=== PATIENT | female | born 1995 | race Caucasian/White ===

== ENCOUNTER 2016-04-05 05:03 | Emergency (ER) | payer SELFPAY ==
[2016-04-05] MEDS ORDERED: TRIPLE ANTIBIOTIC OINTMENT PAC 1 PACKET TOP ONE (05:26)
--- NOTE | 2016-04-05 05:32 | ED Physician Documentation ---
General Adult - HISTORIAN Historian: patient - HPI Stated Complaint: Abrasion to Finger Chief Complaint: General Adult Additional Information: Cut finger on tea urn and thoought there was tea left in the cut. Tetanus in 2012, or 2013. - ROS CONST: no problems - PAST HX Past History: none Allergies/Adverse Reactions: Allergies Allergy/AdvReac Type Severity Reaction Status Date / Time propranolol HCl Allergy Intermediate Hallucinati Verified 04/05/16 05:13 [From Inderal] ons Home Medications: Ambulatory Orders Medication Instructions Recorded NK [NK] 04/05/16 - SOCIAL HX Smoking History: non-smoker - FAMILY HX Family History: No - VITAL SIGNS Vital Signs: Vital Signs Temp Pulse Resp BP Pulse Ox 97.1 F L 94 H 18 147/85 99 04/05/16 05:05 04/05/16 05:05 04/05/16 05:05 04/05/16 05:05 04/05/16 05:05 - REVIEWED ASSESSMENTS Nursing Assessment Reviewed: Yes Vitals Reviewed: Yes ED Results Lab/Radiology - Orders Orders: ED Orders Category Date Time Status Apply occlusive dressing D Care 04/05/16 05:28 Ordered Triple Antibiotic Ointment Pac [Neosporin Packet] Med 04/05/16 05:26 Once 1 packet TOP 1T ONE General Adult Physical Exam - PHYSICAL EXAM GENERAL APPEARANCE: mild distress (anxious) EENT: eye inspection normal, ENT inspection normal NECK: normal inspection RESPIRATORY: no resp distress RECTAL: deferred SKIN: warm/dry, normal color, other (1 cm superficial lac left hand, palmar surface, at 3rd MCP flexion line) EXTREMITIES: normal range of motion (gait and stance), no evidence of injury NEURO: CN's nml as tested, motor nml, sensation nml Discharge Clincal Impression: Finger laceration Qualifiers: Encounter type: initial encounter Qualified Code(s): S61.219A - Laceration without foreign body of unspecified finger without damage to nail, initial encounter Additional Instructions: Keep the area clean and dry. Home Medications: Ambulatory Orders NK [NK] 04/05/16 Condition: Good Disposition: HOME, SELF-CARE Decision to Admit: NO Decision Time: 05:32
[2016-04-05 05:45] VITALS: BP 136/52
== END 2016-04-05 05:32 | disposition home or self-care (01) ==
LOC: ED 05:03
DX: S61.219A Laceration without foreign body of unspecified finger without damage to nail, initial encounter (principal); X58.XXXA Exposure to other specified factors, initial encounter
CPT/HCPCS: 99283

== ENCOUNTER 2017-01-06 07:04 | Emergency (ER) | payer OTHER ==
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
[2017-01-06 07:24] VITALS: BP 120/86
[2017-01-06] MEDS ORDERED: KETOROLAC TROMETHAMINE 60 MG/2 ML VIAL IM ONE (07:28)
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
== END 2017-01-06 09:06 | disposition home or self-care (01) ==
LOC: ED 07:04
DX: M54.2 Cervicalgia (principal); M25.561 Pain in right knee; R51 Headache; T76.11XA Adult physical abuse, suspected, initial encounter; Y93.9 Activity, unspecified; Y99.9 Unspecified external cause status
CPT/HCPCS: 70450; 72125; 73562; 84703; 99283

== ENCOUNTER 2017-01-25 11:15 | Emergency (ER) | payer SELFPAY ==
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
[2017-01-25] MEDS ORDERED: KETOROLAC TROMETHAMINE 60 MG/2 ML VIAL IM ONE (11:34)
[2017-01-25 11:36] VITALS: BP 119/83
[2017-01-25] MEDS: ORPHENADRINE CITRATE 60 MG/2ML IM ONE (12:17)
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
== END 2017-01-25 12:23 | disposition home or self-care (01) ==
LOC: ED 11:15
DX: M25.511 Pain in right shoulder (principal); V89.2XXA Person injured in unspecified motor-vehicle accident, traffic, initial encounter; Y93.9 Activity, unspecified; Y99.9 Unspecified external cause status
CPT/HCPCS: 73010; 96372; 99283; J2360

== ENCOUNTER 2017-02-18 23:55 | Emergency (ER) | payer SELFPAY ==
[2017-02-19] MEDS ORDERED: Lidocaine 1% 5ml(IM or SUTURE)(PAIN CLINIC) ONE (00:25)
[2017-02-19] MEDS ORDERED: fentaNYL CITRATE/PF 100 MCG/ 2ML AMP ONE (00:37)
[2017-02-19] MEDS: fentaNYL CITRATE/PF 100 MCG/ 2ML AMP IVP ONE ×2 (00:40→00:50)
[2017-02-19] MEDS ORDERED: LORazepam 2 MG/ML VIAL ONE (00:45)
[2017-02-19] MEDS ORDERED: LORazepam 2 MG/ML VIAL IVP ONE (00:50)
[2017-02-19] MEDS ORDERED: Lidocaine 1% 5ml(IM or SUTURE)(PAIN CLINIC) IJ ONE (01:12)
[2017-02-19] MEDS ORDERED: SULFAMETHOXAZOLE/TRIMETHOPRIM 1 EACH TABLET PO ONE (01:16)
--- NOTE | 2017-02-19 01:21 | ED Physician Documentation ---
Abscess - HISTORIAN Historian: patient, other (law enforcement) - HPI Stated Complaint: sore on left buttock Chief Complaint: Abscess Additional Information: abscess lt buttocks onset 4 days ago-pt thinks spider bite-prog more sore - squeezed last lnoct got some pus out of it Onset: days ago Timing: worse Duration: persistent since Quality: painful Context: Medication Exposure: none Context: Food Exposure: none - ROS CONST: none CVS/RESP: none EYES/ENT: none GI/: none MS/SKIN/LYMPH: none NEURO/PSYCH: none - PAST HX Past History: other (BEST IGA NEPHROPATHY DEPRESSION BIPOLAR PTSD ANXIETY ) Other History: none Allergies/Adverse Reactions: Allergies Allergy/AdvReac Type Severity Reaction Status Date / Time propranolol HCl Allergy Intermediate Hallucinati Verified 02/19/17 00:04 [From Inderal] ons lamotrigine [From Lamictal] Allergy Verified 02/19/17 00:04 Home Medications: Ambulatory Orders Medication Instructions Recorded NK [NK] 02/19/17 - SOCIAL HX Smoking History: cigarettes Alcohol Use: none Drug Use: methamphetamines - FAMILY HX Family History: none - VITAL SIGNS Vital Signs: Vital Signs Temp Pulse Resp BP Pulse Ox 97.7 F 92 H 16 131/75 97 02/19/17 00:02 02/19/17 00:02 02/19/17 00:02 02/19/17 00:02 02/19/17 00:02 - REVIEWED ASSESSMENTS Nursing Assessment Reviewed: Yes Vitals Reviewed: Yes Procedures Site: LT BUTTOCKS I & D Procedure: betadine prep, sterile drapes applied (t SHAPED INCISION IRRIGATED WLIDOCAINE ANDBETADIN E STERILE DRESSING INSTRU) ED Results Lab/Radiology - Orders Orders: ED Orders Category Date Time Status Place IV Lock 1T Care 02/19/17 00:30 Active WOUND CULTURE Stat Lab 02/19/17 Ordered LORazepam [Ativan] Med 02/19/17 00:50 Discontinued 0.5 mg IVP NOW ONE LORazepam [Ativan] Med 02/19/17 00:45 Discontinued 2 mg .ROUTE .STK-MED ONE Lidocaine 1% 5ml(IM or SUTURE) [Xylocaine] Med 02/19/17 00:25 Discontinued 50 mg .ROUTE .STK-MED ONE Lidocaine 1% 5ml(IM or SUTURE) [Xylocaine] Med 02/19/17 01:12 Discontinued 50 mg IJ NOW ONE Sulfamethoxazole/Trimethoprim [Bactrim Ds] Med 02/19/17 01:16 Discontinued 2 each PO NOW ONE fentaNYL CITRATE/PF [Duragesic] Med 02/19/17 00:37 Discontinued 100 mcg .ROUTE .STK-MED ONE fentaNYL CITRATE/PF [Duragesic] Med 02/19/17 00:40 Discontinued 50 mcg IVP NOW ONE Abscess Physical Exam - EXAM General Appearance: mild distress, moderate distress Skin: warm,dry. No: cyanotic, diaphoretic, pallid, jaundiced Location: other (ABSCESS LT BUTTOCKS) Character: asymmetric, macular, papular Symptoms: warmth, tenderness, induration, weeping, inflammation, crusting. No: well defined border Respiratory: no resp distress, breath sounds normal CVS: reg. rate & rhythm, heart sounds nml Abdomen: non-tender, no distention Neuro/Psych: oriented x3, motor nml, sensation nml, mood/affect nml Discharge Clincal Impression: SUSPECT MRSA [id number] LT BUTTOCKS Referrals: Ronel Blankenship MD [Primary Care Provider] - 2 Days Comments: BETADINE DRESSING INSTRUCTIONS ON SHOWERING AND AFTER CARE Condition: Good Disposition: 01 HOME, SELF-CARE Decision to Admit: NO Decision Time: 01:28
[2017-02-19 01:45] VITALS: BP 122/85
== END 2017-02-19 01:37 | disposition home or self-care (01) ==
LOC: ED 23:55
DX: L02.31 Cutaneous abscess of buttock (principal)
CPT/HCPCS: 87070; A9270; J2060; J3010; 10060; 87186; 96374; 96375; 99283; S1016

== ENCOUNTER 2018-01-04 17:25 | Emergency (ER) | payer SELFPAY ==
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
[2018-01-04 17:46] VITALS: BP 131/69
== END 2018-01-04 17:50 | disposition home or self-care (01) ==
LOC: ED 17:25
DX: L98.9 Disorder of the skin and subcutaneous tissue, unspecified (principal); Z86.14 Personal history of Methicillin resistant Staphylococcus aureus infection
CPT/HCPCS: 99282

== ENCOUNTER 2019-01-09 18:37 | Emergency (ER) | payer OTHER ==
[2019-01-09 18:50] VITALS: BP 130/87
--- NOTE | 2019-01-09 18:51 | ED Physician Documentation ---
Ear Complaints - HISTORIAN Historian: patient - HPI Chief Complaint: Ear Complaints Additional Information: Patient presents with c/o left ear pain x 2 weeks; got better yesterday; had a fever off/on x the last 4 days. She has not been able to follow up with PCP due to radiology interventional physician issues. Timing: still present Location of Pain: L ear Severity: moderate Associated Symptoms: fever, chills, other (sinus pressure) - ROS CONST: no problems CVS/RESP: none GI/: denies: nausea, vomiting MS/SKIN/LYMPH: none NEURO/PSYCH: none All Systems -: No - PAST HX Past History: other (kidney disease ) Immunizations: UTD Allergies/Adverse Reactions: Allergies Allergy/AdvReac Type Severity Reaction Status Date / Time propranolol HCl Allergy Intermediate Hallucinati Verified 01/09/19 18:50 [From Inderal] ons Home Medications: Ambulatory Orders Medication Instructions Recorded NK 01/09/19 - SOCIAL HX Smoking History: greater than 1 pack/day Alcohol Use: none Drug Use: none - FAMILY HX Family History: No - VITAL SIGNS Vital Signs: Vital Signs Temp Pulse Resp BP Pulse Ox 132/78 07/11/18 19:42 - REVIEWED ASSESSMENTS Nursing Assessment Reviewed: Yes Vitals Reviewed: Yes Ear Complaint Physical Exam - EXAM General Appearance: no acute distress, alert Ear: auricle nml, nurse behavioral health care.canal nml, dullness Mouth/Throat: lips nml, gums nml, pharynx nml Nose: nml inspection Head/Neck: atraumatic, neck nml inspection, other (sinus tenderness) Eye: eyes nml inspection, PERRL Resp/CVS: breath sounds nml, heart sounds nml Abdomen: non-tender Skin: nml color, no skin rash Neuro/Psych: oriented x3, mood/affect nml Discharge Clincal Impression: Sinus infection Referrals: Sera Hernandez FNP [Primary Care Provider] - 2 Days Additional Instructions: Take Augmentin 875mg by mouth twice a day for 10 days Increase fluid intake Alternate Tylenol and Ibuprofen as needed for discomfort Follow up with PCP in one week for re-evaluation Condition: Good Disposition: 01 HOME, SELF-CARE Decision to Admit: NO Decision Time: 18:54
== END 2019-01-09 19:00 | disposition home or self-care (01) ==
LOC: ED 18:37
DX: J32.9 Chronic sinusitis, unspecified (principal)
CPT/HCPCS: 99281; 99282